=== PATIENT | male | born 1995 | race African-American/Black ===

== ENCOUNTER 2021-01-22 06:25 | Emergency (ER) | payer SELFPAY ==
[~2021-01-22] VITALS: Ht 185.4 cm; Wt 71.0 kg
--- NOTE | 2021-01-22 06:31 | NUR ---
PT BIB [facility] TO ROOM 16. PT FOUND BY FAMILY HAVING A SEIZURE WHILE HE WAS SLEEPING ON THE FLOOR OF HIS ROOM. ON EMS ARRIVAL, PT WAS A&OX3 BUT APPEARED IN A POSTICTAL STATE. PT WAS INCONTINENT OF URINE AT THE TIME. PT BROUGHT TO HOSPITAL, PIV TO RIGHT FOREARM 18G IN PLACE FLUSHES EASILY. PT PLACED ON CR MONITOR, AND BLANKETS PROVIDED. PT RESTING AND CALM AND COOPERATIVE. MD TO SEE PT.
--- NOTE | 2021-01-22 06:49 | NUR ---
report to [facility]
[2021-01-22] MEDS ORDERED: ACETAMINOPHEN 325 MG TABLET PO ONE (07:00)
[2021-01-22 07:03] LABS: BASOPHILS % (AUTO) 0 % (0-1); EOSINOPHILS % (AUTO) 2 % (1-7); LYMPHOCYTES % (AUTO) 28 % (22-44); MEAN CORPUSCULAR HEMOGLOBIN 32.3 pg (27.5-34.5); MEAN CORPUSCULAR HGB CONC 33.4 g/dL (33.2-36.2); MEAN PLATELET VOLUME 6.7 fL (7.4-10.4); MONOCYTES % (AUTO) 7 % (2-9); NEUTROPHILS % (AUTO) 63 % (42-75); PLATELET COUNT 223 x10^3/uL (130-400); RED BLOOD COUNT 5.19 x10^6/uL (4.38-5.82)
--- NOTE | 2021-01-22 07:04 | NUR ---
PT TO CT
[2021-01-22 07:06] LABS: MD NO
[2021-01-22 07:12] LABS: ALANINE AMINOTRANSFERASE 16 U/L (12-78); ALBUMIN 3.5 g/dL (3.4-5.0); ANION GAP 8 mmol/L (5-15); CALCIUM 8.9 mg/dL (8.5-10.1); CHLORIDE 109 mmol/L (98-107); CREATININE 1.62 mg/dL (0.7-1.3)
[2021-01-22 07:14] LABS: ALKALINE PHOSPHATASE 59 U/L (45-117); BILIRUBIN,TOTAL 0.3 mg/dL (0.2-1.0); TOTAL PROTEIN 6.8 g/dL (6.4-8.2)
[2021-01-22] MEDS ORDERED: PLEASE ENTER ALLERGIES MC SCH (07:30)
[2021-01-22 08:00] VITALS: BP 96/68
[2021-01-22] MEDS ORDERED: SODIUM CHLORIDE 0.9% 1,000ML IVBOLUS ONE (08:00)
--- NOTE | 2021-01-22 08:00 | NUR ---
PT RESTING COMFORTABLY IN [facility]. CALL LIGHT WITHIN REACH
[2021-01-22] MEDS ORDERED: LEVETIRACETAM 500 MG TABLET ONE (08:56)
[2021-01-22] MEDS ORDERED: LEVETIRACETAM 500 MG TABLET PO ONE (09:00)
--- NOTE | 2021-01-22 09:10 | NUR ---
DISCHARGE INSTRUCTIONS REVIEWED WITH PT. ALL QUESTIONS ANSWERED AT THIS TIME.
== END 2021-01-22 09:25 | disposition home or self-care (01) ==
LOC: ED 08:55
DX: N28.9 Disorder of kidney and ureter, unspecified (principal); R51.9 Headache, unspecified; F17.200 Nicotine dependence, unspecified, uncomplicated
CPT/HCPCS: 36415; 70450; 80053; 85025; 93005; 96360; 99285; J7030

== ENCOUNTER 2021-02-08 14:35 | Emergency (ER) | payer SELFPAY ==
[~2021-02-08] VITALS: Ht 185.4 cm; Wt 75.9 kg
--- NOTE | 2021-02-08 14:50 | NUR ---
REPORT FROM CYNTHIA STRINGER. PT RESTING IN GURNEY, AWAKE/ALERT AND ORIENTED X4, CONVERSES W EASE AND ANSWERS ALL QUESTIONS APPROPRIATELY. PT DROWSY AND REPORTS MILD BLOOM AND DIFFUSE PETICHIA NOTED WHICH HE STATES IS COMMON AFTER SEIZURES. HX OF SZ, COMPLIANT WITH KEPPRA BID, THOUGH MISSED 1200 DOSE TODAY D/T WORK. DENIES TRAUMA/FALL WITH SZ, STATES HE WAS IN BED WHEN IT OCCURED; DENIES NECK OR BACK PAIN, RECENT ILLNESS, DRUG USE, OR STRESSORS. LAST ETOH OVER TWO MONTHS AGO. +ORAL TRAUMA, BLEEDING CONTROLLED. AIRWAY PATENT, SPEECH CLEAR. PIV INITIATED. BP/SPO2 MONITORING IN PLACE. SZ PRECAUTIONS IN PLACE.
--- NOTE | 2021-02-08 14:59 | NUR ---
TASK RN: [facility] SMITH- WITNESSED SZ BY FAMILY AT HOME FOR APPROX 1 MINUTE. DX LAST YEAR W/ SZ, TAKES KEPPRA. BLOOD SUGAR WAS 95, A&0X2 AND GS 14 FOR [facility]. PER [facility] PT HAD NO SZ ACTIVITY, NO INTERVENTIONS PROVDIED. PT HOOKED TO MONITOR, PLACED IN GOWN. PT IS ALERT AND ORIENTED X4, REPORTS HE TAKES HIS KEPPRA DESCRIBED AND HASN'T HAD A SZ SINCE DX. BEDRAIL UPX2 W/ PADS IN PLACE, SUCTION AVAILABLE. SBAR REPORT PROVIDED TO PRIMARY RN.
[2021-02-08] MEDS ORDERED: LEVE500T53 PO (15:05)
[2021-02-08] MEDS ORDERED: IBUPROFEN 200 MG TABLET ONE (15:38)
[2021-02-08] MEDS ORDERED: LORazepam 2 MG/ML, 1ML ONE (15:39)
--- NOTE | 2021-02-08 15:49 | NUR ---
PT MEDICATED PER [facility] FOR BLOOM, 02/16. PT UPDATED TO POC (OBS) AND DEMONSTRATES UNDERSTANDING. Addendum: 02/08/21 at 1550 by MIAN PT TOOK HOME HERB AT THE RECOMMENDATION OF [facility]
[2021-02-08] MEDS ORDERED: IBUPROFEN 200 MG TABLET PO ONE (16:00)
[2021-02-08] MEDS ORDERED: LORazepam 2 MG/ML, 1ML IVPush ONE (16:00)
--- NOTE | 2021-02-08 16:21 | NUR ---
PT REPORTS IMPROVEMENT IN BLOOM. NO SZ ACTIVITY IN ED. PER [facility], OKAY TO DC. PT OFF MONITORING AND ASKED TO DRESS. CONTACTING FRIEND FOR TRANSPORT HOME.
[2021-02-08 16:22] VITALS: BP 96/60
--- NOTE | 2021-02-08 16:35 | NUR ---
DC EDUCATION PROVIDED, PT DEMONSTRATES UNDERSTANDING. PT AMBULATED STEADILY TO DC WITH RN. FRIEND TO TRANSPORT PT HOME
== END 2021-02-08 16:36 | disposition home or self-care (01) ==
LOC: ED 15:55
DX: G40.909 Epilepsy, unspecified, not intractable, without status epilepticus (principal)
CPT/HCPCS: 96374; 99283; J2060

== ENCOUNTER 2021-03-16 16:12 | Emergency (ER) | payer SELFPAY ==
[~2021-03-16] VITALS: Ht 185.4 cm; Wt 82.0 kg
[~2021-03-16 16:12] MED LIST: LEVE500T53 PO
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
--- NOTE | 2021-03-16 16:44 | NUR ---
MICROBIOLOGY TECHNICIAN AT BEDSIDE
--- NOTE | 2021-03-16 16:45 | NUR ---
ORDER FOR RESTRAINTS FROM DR POLANCO AT [id number].
--- NOTE | 2021-03-16 16:45 | NUR ---
SZ PADS PLACED ON [place]
[2021-03-16] MEDS ORDERED: LORazepam 2 MG/ML, 1ML ONE (16:52)
[2021-03-16] MEDS ORDERED: LORazepam 2 MG/ML, 1ML IVPush ONE (17:00)
--- NOTE | 2021-03-16 17:38 | NUR ---
AUN[place] NICH[place] CALLED, , UNCLE [phone]. STATES PT HAD 3-4 MIN SZ AT HOME WHILE LAYING ON GROUND.
--- NOTE | 2021-03-16 17:57 | NUR ---
PT STILL COMBATIVE, UNABLE TO KEEP BP AND CARDIAC LEADS ON. PT WILL MOVE AROUND ENOUGH TO FORCE THEM OFF. WILL TRY ONCE PT IS MORE CALM.
[2021-03-16] MEDS ORDERED: MIDAZOLAM 1 MG/ML, 2ML ONE (18:12)
--- NOTE | 2021-03-16 18:24 | NUR ---
PT GIVEN VERSED IV. PT NON STOP MOVING AROUND IN GURNEY, STILL TRYING TO WIGGLE OUT OF GURNEY AND RESTRAINTS, NO LONGER YELLING.
[2021-03-16] MEDS ORDERED: LEVETIRACETAM 500 MG in SODIUM CHLORIDE 0.9% 100 ML IV ONE (18:30)
[2021-03-16] MEDS ORDERED: MIDAZOLAM 1 MG/ML, 5ML IVPush ONE (18:30)
--- NOTE | 2021-03-16 19:01 | NUR ---
PT YELLING AGAIN AND CURSING. PT REFUSING TO ANSWER QUESTIONS DURING ASSESSMENT.
--- NOTE | 2021-03-16 20:30 | NUR ---
CALL PLACED TO FAMILY TO MAKE POC, NO ANSWER, VM LEFT. RESTRAINT ORDER RENEWED BY . PT WILL SLEEP FOR 3-4 MIN AND THEN WAKE UP AGGITATED, YELLING, SCREAMING, NAME CALLING. NOW THINKS HE HAS BEEN HERE FOR 1 YEAR.
--- NOTE | 2021-03-16 20:55 | NUR ---
PT STILL YELLING, HOWEVER, MORE ORIENTED. NOW ANSWERING ALL ORIENTATION QUESTIONS CORRECTLY, INCLUDING WHICH HOSPITAL HE IS AT. ADMITS TO NOT REMEMBERING MUCH FROM EARLIER BUT STILL DENYING HE HAD A SEIZURE. CLAIMS HE IS COMPLIANT WITH TAKING KEPPRA AT HOME. RIGHT ARM AND LEFT LEG TAKEN OUT OF LOCKING RESTRAINT. PT STATES HE IS MORE COMFORTABLE.
--- NOTE | 2021-03-16 21:44 | NUR ---
PT OUT OF ALL RESTRAINTS. STILL IRRITABLE BUT ALERT AND ORIENTED. REQUESTING WATER.
[2021-03-16 22:00] VITALS: BP 100/57
--- NOTE | 2021-03-16 22:26 | NUR ---
Sleeping, waiting for family to arrive for discharge.
--- NOTE | 2021-03-16 22:35 | NUR ---
Aunt here, Pt IV dc cath intact. Pt yelling at aunt, refusing to get up. Aunt now yelling at pt. Security stand by for dc/
== END 2021-03-16 22:56 | disposition home or self-care (01) ==
LOC: ED 16:42
DX: G40.309 Generalized idiopathic epilepsy and epileptic syndromes, not intractable, without status epilepticus (principal); R55 Syncope and collapse; Z91.14 Patient's other noncompliance with medication regimen
CPT/HCPCS: 96374; 96375; 99284; J1953; J2060; J2250